=== PATIENT | female | born 1980 | race Asian ===

== ENCOUNTER 2020-09-18 10:49 | Outpatient (CLI) | payer OTHER | END 2020-09-18 23:55 | disposition home or self-care (01) | LOC: MAMMO 10:49 | PROVIDERS: ATTEND Internal Medicine | DX: Z12.31 Encounter for screening mammogram for malignant neoplasm of breast (principal) ==

== ENCOUNTER 2020-10-23 11:00 | Outpatient (CLI) | payer OTHER | END 2020-10-23 21:04 | disposition home or self-care (01) | LOC: US 11:00 | PROVIDERS: ATTEND Internal Medicine | DX: N64.59 Other signs and symptoms in breast (principal); Z12.31 Encounter for screening mammogram for malignant neoplasm of breast ==

== ENCOUNTER 2021-09-10 13:58 | Outpatient (CLI) | payer BC, OTHER | END 2021-09-10 20:02 | disposition home or self-care (01) | LOC: MAMMO 13:58 | PROVIDERS: ATTEND Internal Medicine | DX: N64.59 Other signs and symptoms in breast (principal) | CPT/HCPCS: G0279 ==

== ENCOUNTER 2023-01-17 15:12 | Outpatient (CLI) | payer BC, OTHER | END 2023-01-17 19:18 | disposition home or self-care (01) | LOC: MAMMO 15:12 | PROVIDERS: ATTEND Internal Medicine | DX: Z12.31 Encounter for screening mammogram for malignant neoplasm of breast (principal) ==

== ENCOUNTER 2023-05-03 14:56 | Outpatient (CLI) | payer OTHER | END 2023-05-03 19:31 | disposition home or self-care (01) | LOC: MAMMO 14:56 | PROVIDERS: ATTEND Surgery | DX: N63.21 Unspecified lump in the left breast, upper outer quadrant (principal) ==